=== PATIENT | male | born 1970 | race Caucasian/White ===

== ENCOUNTER 2016-06-22 08:52 | Day surgery (SDC) | payer MEDICARE, OTHER ==
[~2016-06-22] VITALS: Ht 180.3 cm; Wt 104.2 kg
[~2016-06-22 08:52] MED LIST: ALBU8.5H IH; ARIP10TA14 PO; ATOR20TA86 PO; FAMO20 PO; FLUT16H NASAL; MONT10TA21 PO; OMEG100019 PO; P-EP-31 PO; ROPI1TAB11 PO; SUCR1TAB PO; TOPI25 PO; VIT1CAPS47 PO
[2016-06-22] MEDS ORDERED: SODIUM CHLORIDE 0.9% 0 ML IV ONE (08:59)
[2016-06-22] MEDS ORDERED: 0.9% SODIUM CHLORIDE 10 ML SYRINGE IVP ONE (09:03)
[2016-06-22] MEDS ORDERED: SODIUM CHLORIDE 0.9% 1,000 ML IV ONE (09:30)
[2016-06-22 10:05] LABS: ANION GAP 11 mmol/L (8-16); CALCIUM, TOTAL 8.4 mg/dL (8.8-10.5); CARBON DIOXIDE 24 mmol/L (22-29); CHLORIDE 109 mmol/L (98-107); CREATININE 1.04 mg/dL (0.60-1.30); GLOMERULAR FILTR. RATE CALC > 60 mL/min (>60); POTASSIUM 4.1 mmol/L (3.5-5.1); SODIUM SERUM 144 mmol/L (136-145); UREA NITROGEN, BLOOD 14 mg/dL (7-18)
[2016-06-22] MEDS ORDERED: IOVERSOL 350 MG/ML 150 ML VIAL ONE (10:07)
[2016-06-22] MEDS ORDERED: SODIUM CHLORIDE 0.9% 100 ML ONE (10:08)
[2016-06-22] MEDS ORDERED: NITROGLYCERIN 400 MCG/SUBLINGUAL SPRAY 4.9 GM BOTTLE SL ONE (10:29)
== END 2016-06-22 11:10 | disposition home or self-care (01) ==
LOC: SDS 08:52 → EDSTATUS 11:00 → SDS 11:10
PROVIDERS: ATTEND Internal Medicine Cardiovascular Disease
DX: R07.9 Chest pain, unspecified (principal); I27.2 Other secondary pulmonary hypertension; G47.30 Sleep apnea, unspecified; G25.81 Restless legs syndrome; K64.9 Unspecified hemorrhoids; Z98.890 Other specified postprocedural states
CPT/HCPCS: 36415; 75574; 80048; 93005; J7050; Q9967; J7030